=== PATIENT | male | born 1980 | race African-American/Black ===

== ENCOUNTER 2016-09-20 18:21 | Inpatient (IN) ==
[2016-09-20] MEDS: *HR* HYDROmorphone 2 MG/ML SYRINGE IVP PRN (21:25)
[2016-09-20] MEDS ORDERED: *HR* HYDROmorphone 2 MG/ML SYRINGE IVP ONE (23:16)
[2016-09-21] MEDS: *HR* HYDROmorphone 2 MG/ML SYRINGE IVP PRN ×3 (03:31→22:23)
[2016-09-21] MEDS ORDERED: *HR* HYDROmorphone 2 MG/ML SYRINGE IVP ONE ×2 (06:41→13:15)
--- NOTE | 2016-09-21 07:50 | Anesthesia Evaluation PreOp ---
Date of Encounter: 09/21/16 Time of Encounter: 15:54 - Past History Planned Operation: ORIF Right Ankle Cardiac History: Denies any Significant Hx Pulmonary History: Denies Any Significant HX FRUIT DISTRIBUTOR History: Denies Any Significant HX Other Medical History: Denies Any Significant HX Anesthesia History: Past Anesthesia (None) Alcohol Use: rarely Drug use: none Medications and Allergies No Known Home Drugs 09/21/16 [History] Allergies No Known Allergies Allergy (Verified 09/20/16 21:08) - Meds/Allergy Pre-op Review Medications Reviewed: Yes Allergies Reviewed: Yes Beta Blockers on Current Med List: No Anesthesia Results - Labs 09/21/16 12:17 09/21/16 12:17 Anesthesia Exam O2 Sat Height 1.7 m Weight 113.398 kg Weight 113.761 kg O2 Sat by Pulse Oximetry 95 O2 Sat by Pulse Oximetry 92 O2 Sat by Pulse Oximetry 97 O2 Sat by Pulse Oximetry 93 Vital Signs Temp Pulse Resp BP Pulse Ox 98.2 F 117 17 122/80 93 09/20/16 20:28 09/20/16 20:28 09/20/16 20:28 09/20/16 20:28 09/20/16 20:28 Vital Signs/O2 Sat, Most Current Temp Pulse Resp BP Pulse Ox 98.5 F 88 16 144/80 95 09/21/16 06:31 09/21/16 06:31 09/21/16 06:31 09/21/16 06:31 09/21/16 06:31 Height: 5'7'' Weight: 250# - HEENT Pupil (Motor): Pupils equal, EOMI Mallampati: III Teeth: Normal Oral Opening: Greater than 3 - FRUIT DISTRIBUTOR LOC: Oriented FRUIT DISTRIBUTOR Motor: Normal RUE, Normal LUE, Normal RLE, Normal LLE, Normal Face FRUIT DISTRIBUTOR Sensory: Normal: RUE, LUE, RLE, LLE, Face - Cardiac Rhythm: Regular Murmur: None JVD: No Carotid Bruit: No - Pulmonary Breath Sounds: bilateral Clear Respiratory Effort: Symmetrical Anesthesia Assess/Plan ASA Score: 1 Modified Deon Scale for Level of Consciousness: Cooperative, oriented, and tranquil Anesthetic Plan: General Autologous Blood: Yes Monitoring Plan: Standard Monitors Recovery Plan: PACU
--- NOTE | 2016-09-21 11:38 | Podiatry History & Physical ---
History of Present Illness Chief complaint: right ankle dislocation HPI: Mr. Arellano is a 35 year old male who recently sustained a fracture to his right ankle. The patient was transported here from another facility. Upon arrival it was noted that the patient was having significant pain. The patient relates that his ankle is severely painful. Patient relates that the emergency department at the facility that he has previously at tried to reduce it unsuccessfully. The patient relates that he would like to have it fixed as soon as possible. Patient denies any other pedal complaints. Patient denies any prior history of any illnesses or diseases. All Systems Reviewed: A 10-system review of systems was performed and is negative for pertinent findings except as documented above in the HPI. - Constitutional Constitutional: as per HPI - Cardiovascular Cardiovascular: leg edema - Respiratory Respiratory: as per HPI - Musculoskeletal Musculoskeletal: joint swelling, limited range of motion Past Med Surg Social Fam HX - Past Medical History Medical history: no medical history Psychiatric history: no psych history - Past Surgical History Surgical History: no surgical history - Social History Smoking Status: Never smoker Smokeless Tobacco Status: No Alcohol use: rarely Drug use: none - Family History Father Living Status: Still Living Mother Living Status: Still Living Hx Family Cardiac Disorders: Yes (CHF) Hx Family Endocrine Disorder: Yes (Pre DM) Medications and Allergies Allergies No Known Allergies Allergy (Verified 09/20/16 21:08) Physical Exam - Constitutional Vitals: Temp Pulse Resp BP Pulse Ox 98.4 F 98 16 142/84 96 09/21/16 10:13 09/21/16 10:13 09/21/16 10:13 09/21/16 10:13 09/21/16 10:13 Exam: Capillary fill time is intact to the digits of the right ankle. Pedal pulses are palpable. Sensation is intact. Significant edema noted with tenting of the skin along the medial aspect of the tibia secondary to the dislocation of the ankle. Radiographic exam demonstrates significant dislocation of the ankle. The right ankle has no noted skin necrosis at this point. No open lesions, abrasions, or ulcerations. HEENT-no drainage out of the ears, throat, nose, eyes. Cardiovascular-regular rate and rhythm. Lungs-clear to auscultation. Results - Labs Labs: Abnormal lab results POC Glucose 94 (58-89) H 09/21/16 05:35 All other labs normal. Assessment and Plan (1) Bimalleolar fracture of right ankle Current visit: Yes Status: Acute At this time due to the significant displacement the patient needs to go to the operating room as soon as possible. Nursing household chores was called and the case was scheduled. Patient was instructed that the procedure would be open reduction, internal fixation of the right ankle fracture versus closed reduction external fixation of the ankle fracture. The patient was understanding. Patient relates that he would like to pursue surgery as soon as possible. I agree with patient and feel as though he needs to be reduced as soon as possible. Due to the lack of success and the emergency department I feel as though a bedside reduction would be both and appropriate and unsuccessful. We will schedule this patient for surgical intervention as soon as possible. The patient was instructed that due to the injury he may have continued arthritis or other problems. The patient was instructed that his skin is at risk and may require an external fixator for a few weeks prior to definitive fixation with internal fixation. Patient was informed of the risks and complications of surgery. These may include but are not limited to the following; nerve damage, numbness, tingling, RSD/CRPS, loss of motor function, loss of toe, loss of limb, loss of life, ischemia, wound healing issues, infection, scarring, keloid formation, continued pain, arthritis, non-union, mal-union, prominent hardware, displaced hardware, reaction to hardware, the need to remove hardware, bruising, continued limp, the need for future surgery, over correction, under correction, chronic swelling, the need for physical therapy, stiffness of joints, ulceration, slow healing, wound dehiscence, reaction to implant, reaction to sutures. The patient was informed of the possible conservative treatments available which may include but are not limited to the following: Orthotics, bracing, non -weight bearing, physical therapy, padding, taping, steroid injections, NSAIDS, casting. The patient was given the option to seek a second opinion. It was explained that surgery is an art and not an exact science therefore results cannot be guaranteed. All the patients questions and concerns were addressed. Patient agrees to have the surgery despite the possible risks and complications. Absolutely no guarantees were given or implied. Qualifiers: Encounter type: initial encounter Fracture type: closed Qualified Code(s) : S82.841A - Displaced bimalleolar fracture of right lower leg, initial encounter for closed fracture
[2016-09-21 12:33] LABS: Basophils % 0.3 %; Eosinophils # 0.1 K/mcL (0.0-0.6); Eosinophils % 0.8 %; Hematocrit 45.9 % (37.5-50.1); Hemoglobin 14.3 g/dL (12.9-16.9); Immature Granulocytes % 0.2 % (0-4); Lymphocytes # 1.2 K/mcL (0.6-4.6); Lymphocytes % 13.4 %; Mean Corpuscular HGB Conc 31.2 g/dL (31.6-35.5); Mean Corpuscular Volume 80.2 fL (83.0-100.0); Mean Platelet Volume 9.8 fL (9.4-12.4); Monocytes # 0.9 K/mcL (0.0-1.3); Monocytes % 10.2 %; Neutrophils # 6.9 K/mcL (1.6-8.9); Platelet Count 347 K/mcL (140-400); Red Blood Count 5.72 M/mcL (4.19-5.50); Red Cell Distribution Width 13.6 % (11.5-14.5); Segmented Neutrophils % 75.1 %
[2016-09-21 12:36] LABS: BUN/Creatinine Ratio 15 (6-26); Blood Urea Nitrogen 16 mg/dL (8-26); Calcium 9.8 mg/dL (8.6-10.8); Carbon Dioxide 28 mEq/L (19-29); Chloride 103 mEq/L (98-109); Glucose 104 mg/dL (70-99); Osmolality,Calculated 291 (280-300); Sodium 140 mEq/L (136-145); eGFR For African Americans > 60 (> 60); eGFR For Non-African Americans > 60 (> 60)
[2016-09-21 12:37] LABS: Potassium 4.9 mEq/L (3.5-4.5)
[2016-09-21] MEDS ORDERED: 0.9 % Sodium Chloride 1,000 ML ONE (13:19)
[2016-09-21] MEDS: 0.9 % Sodium Chloride 1,000 ML IVC SCH ×2 (13:31→20:52)
[2016-09-21] MEDS ORDERED: *HR* Propofol 200 MG/20 ML VIAL IVP ONE (13:35)
[2016-09-21] MEDS ORDERED: *HR* Midazolam HCl 2 MG/2 ML VIAL ONE (13:35)
[2016-09-21] MEDS ORDERED: *HR* FentaNYL (PF) 100 MCG/2 ML VIAL ONE (13:35)
[2016-09-21] MEDS ORDERED: Ondansetron 4 MG/2 ML VIAL ONE (13:38)
[2016-09-21] MEDS ORDERED: Lidocaine -MPF 2% 2 ML VIAL ONE (13:38)
[2016-09-21] MEDS ORDERED: Dexamethasone 4 MG/ML VIAL ONE (13:38)
[2016-09-21] MEDS ORDERED: *HR* Succinylcholine 200 MG/10 ML VIAL IVP ONE (13:38)
[2016-09-21] MEDS ORDERED: *HR* Rocuronium Bromide 50 MG/5 ML VIAL ONE (13:38)
[2016-09-21] MEDS ORDERED: Bupivacaine/Clonidine Syringe 1 EACH SYRINGE ONE ×2 (15:38→18:07)
[2016-09-21] MEDS ORDERED: *HR* Labetalol 20 MG/4 ML SYRINGE IVP PRN (17:27)
[2016-09-21] MEDS ORDERED: *HR* Promethazine 25 MG/ML VIAL IVP PRN (17:27)
[2016-09-21] MEDS ORDERED: *HR* HYDROmorphone (PF) 1 MG/ML SYRINGE IVP PRN (17:27)
[2016-09-21] MEDS ORDERED: Albuterol 2.5 MG/3 ML NEBULIZER IH ONE (17:27)
[2016-09-21] MEDS ORDERED: Ondansetron 4 MG/2 ML VIAL IVP ONE (17:27)
--- NOTE | 2016-09-21 19:22 | Anesthesia Evaluation Post Op ---
Date of Encounter: 09/21/16 Time of Encounter: 19:21 - Vital Signs Vital Signs: Vital Signs/O2 Sat, Most Current Temp Pulse Resp BP Pulse Ox 100.1 F H 99 20 124/98 96 09/21/16 18:58 09/21/16 19:08 09/21/16 19:08 09/21/16 19:08 09/21/16 19:08 - Lungs Lungs: Clear Ascult./Percussion - Airway Airway: Non-obstructed - Cardiovascular Regular Rate - Mental Status Mental Status: Alert & Oriented, Answers Appropriately - Pain Pain Scale: 3 Pain Scale used: Numeric (1 - 10) - Nausea Vomiting Nausea Vomiting: Not Present - Hydration Hydration: Ice chips, Has not voided - Discharge PostOp Status: Transfer Patient to floor
--- NOTE | 2016-09-21 22:38 | Operative Note ---
Date of procedure: 09/21/16 Pre-op diagnosis: bimalleolar ankle fracture dislocation, right Post-op diagnosis: same Procedure: Open reduction, internal fixation of bimalleolar ankle fracture, open repair of syndesmosis right ankle. Implants: Antonio plate with associated screws Complications: None Anesthesia: GETA Surgeon: Marcos Stanley Estimated blood loss (cc): 20 Tourniquet Time (Minutes): 90 Condition: stable Disposition: PACU Procedure in Detail: The patient was administered IV antibiotics. The patient was transported to the operative room and placed on operating table in the supine position. Following anesthesia the extremity was scrubbed prepped and draped in the usual aseptic fashion. A timeout was performed. The lower extremity was raised to 60 degrees for hemostasis and exsanguinated utilizing an Esmarch bandage. The pneumatic tourniquet was inflated. The leg was lowered to the table. Attempted closed reduction was performed. It was noted that the distal fibula was almost perpendicular to the proximal fibula and significant dislocation and contracture was noted. Due to the significant dislocation the decision was made to open the site to reduce it more appropriately as closed reduction was not successful. An incision was made and deepened through subcutaneous tissue with care taken to identify and retract all vital neurovascular structures. The fracture of the distal fibula was identified and noted to be transverse in nature. The site was reduced utilizing lobster claw, due to transverse fracture a lag screw was not used. The site was stabilized temporarily utilizing 2 K wire fixation instead. A neutralization plate was applied. The fracture site was noted to have stable fixation at which point the temporary K wire fixation was removed. Due to the difficulty getting adequate reduction with the medial malleolus the decision was made to open the medial side. An incision was made along the medial malleolus and deepened through subcutaneous tissue with care taken to identify and retract all vital neurovascular structures. The medial malleolar fragment was identified and temporary stabilized with 2 K wires. After adequate stabilization with K wire fixation was performed the cannulated screws were inserted for permanent fixation. The medial malleolus fragment was noted to be fragmented and had multiple fracture lines through it. After sufficient stabilization of the medial malleolus was performed the attention was directed to the syndesmosis. The syndesmosis was then tested and noted to be insufficient. A syndesmotic screw was then placed to repair the subluxation/syndesmosis. The incision site was irrigated with copious amounts of normal saline and closed in a layered fashion. A dry sterile dressing was applied. The pneumatic tourniquet was deflated and a hyperemic response was noted to all digits. The patient was placed in a posterior splint. The patient tolerated the procedure and anesthesia well and was transported to the recovery room with vital signs stable and vascular status intact to both feet. The patient will be readmitted per anesthesia. The patient will keep the dressings clean, dry, intact until the follow-up appointment in 1-2 weeks. The patient's weightbearing status will be strict nonweightbearing. The patient will be readmitted for pain control and observation. The patient will be discharged tomorrow with Percocet and blood thinner consisting of either Xarelto, Lovenox, or aspirin. The patient will need to keep the posterior splint intact at all times. The patient will need to follow-up within 1 week of discharge. Patient will need to ice and elevate.
[2016-09-21] MEDS ORDERED: *HR* OxyCODONE/APAP 10/325 TABLET PO PRN (23:30)
[2016-09-21] MEDS: *HR* OxyCODONE/APAP 10/325 TABLET PO PRN (23:52)
[2016-09-22] MEDS: *HR* HYDROmorphone 2 MG/ML SYRINGE IVP PRN ×4 (01:26→15:54)
[2016-09-22] MEDS: *HR* OxyCODONE/APAP 10/325 TABLET PO PRN ×3 (04:31→13:57)
--- NOTE | 2016-09-22 11:58 | Discharge Summary ---
Date of Encounter: 09/22/16 Time of Encounter: 11:54 - Discharge Diagnosis (1) Bimalleolar fracture of right ankle Priority: Primary Status: Acute Qualifiers: Encounter type: initial encounter Fracture type: closed Qualified Code(s) : S82.841A - Displaced bimalleolar fracture of right lower leg, initial encounter for closed fracture - Discharge Medications Prescriptions: OxyCODONE/APAP 10/325 [Percocet 10/325 MG] 1 each PO Q4HR PRN #30 tab PRN Reason: MODERATE TO SEVERE PAIN Aspirin [Ecotrin] 81 mg PO BID #42 tablet. Home Medications: Aspirin [Ecotrin] 81 mg PO BID #42 tablet. 09/22/16 [Rx] OxyCODONE/APAP 10/325 [Percocet 10/325 MG] 1 each PO Q4HR PRN #30 tab 09/22/16 [ Rx] Allergies/Adverse Reactions: Allergies No Known Allergies Allergy (Verified 09/20/16 21:08) Procedures and tests throughout hospitalization: Fluoroscopy 09/21/16 00:00 IMPRESSION: Intraprocedural fluoroscopic spot images as above. See separate procedure report for more information. Satisfactory appearance of the right ankle following ORIF. D/ / Sherman Beebe MD / Sherman Beebe MD Interpreting Provider: Sherman Beebe MD Last Vital Signs Temp 98.8 F 09/22/16 14:30 Pulse 92 09/22/16 14:30 Resp 16 09/22/16 14:30 BP 147/72 09/22/16 14:30 Pulse Ox 97 09/22/16 14:30 Laboratory Last Values WBC 9.2 K/mcL (4.3-11.1) 09/21/16 12:17 RBC 5.72 M/mcL (4.19-5.50) H 09/21/16 12:17 Hgb 14.3 g/dL (12.9-16.9) 09/21/16 12:17 Hct 45.9 % (37.5-50.1) 09/21/16 12:17 MCV 80.2 fL (83.0-100.0) L 09/21/16 12:17 MCH 25.0 pg (28.0-33.3) L 09/21/16 12:17 MCHC 31.2 g/dL (31.6-35.5) L 09/21/16 12:17 RDW 13.6 % (11.5-14.5) 09/21/16 12:17 Plt Count 347 K/mcL (140-400) 09/21/16 12:17 MPV 9.8 fL (9.4-12.4) 09/21/16 12:17 Immature Gran % 0.2 % (0-4) 09/21/16 12:17 Seg Neutrophils % 75.1 % 09/21/16 12:17 Lymphocytes % 13.4 % 09/21/16 12:17 Monocytes % 10.2 % 09/21/16 12:17 Eosinophils % 0.8 % 09/21/16 12:17 Basophils % 0.3 % 09/21/16 12:17 Neutrophils # 6.9 K/mcL (1.6-8.9) 09/21/16 12:17 Lymphocytes # 1.2 K/mcL (0.6-4.6) 09/21/16 12:17 Monocytes # 0.9 K/mcL (0.0-1.3) 09/21/16 12:17 Eosinophils # 0.1 K/mcL (0.0-0.6) 09/21/16 12:17 Basophils # 0.0 K/mcL (0.0-0.2) 09/21/16 12:17 Sodium 140 mEq/L (136-145) 09/21/16 12:17 Potassium 4.9 mEq/L (3.5-4.5) H 09/21/16 12:17 Chloride 103 mEq/L (98-109) 09/21/16 12:17 Carbon Dioxide 28 mEq/L (19-29) 09/21/16 12:17 BUN 16 mg/dL (8-26) 09/21/16 12:17 Creatinine 1.07 mg/dL (0.72-1.25) 09/21/16 12:17 Est GFR ( Amer) > 60 (> 60) 09/21/16 12:17 Est GFR (Non-Af Amer) > 60 (> 60) 09/21/16 12:17 BUN/Creatinine Ratio 15 (6-26) 09/21/16 12:17 Glucose 104 mg/dL (70-99) H 09/21/16 12:17 POC Glucose 88 (58-89) 09/21/16 11:26 Calculated Osmolality 291 (280-300) 09/21/16 12:17 Calcium 9.8 mg/dL (8.6-10.8) 09/21/16 12:17 Labs on day of discharge: Labs from last 24 hours 09/21/16 09/21/16 09/21/16 12:17 12:17 11:26 WBC 9.2 RBC 5.72 H Hgb 14.3 Hct 45.9 MCV 80.2 L MCH 25.0 L MCHC 31.2 L RDW 13.6 Plt Count 347 MPV 9.8 Immature Gran % 0.2 Seg Neutrophils % 75.1 Lymphocytes % 13.4 Monocytes % 10.2 Eosinophils % 0.8 Basophils % 0.3 Neutrophils # 6.9 Lymphocytes # 1.2 Monocytes # 0.9 Eosinophils # 0.1 Basophils # 0.0 Sodium 140 Potassium 4.9 H Chloride 103 Carbon Dioxide 28 BUN 16 Creatinine 1.07 Est GFR ( Amer) > 60 Est GFR (Non-Af Amer) > 60 BUN/Creatinine Ratio 15 Glucose 104 H POC Glucose 88 Calculated Osmolality 291 Calcium 9.8 - Impressions ITS Impressions Fluoroscopy 09/21/16 00:00 IMPRESSION: Intraprocedural fluoroscopic spot images as above. See separate procedure report for more information. Satisfactory appearance of the right ankle following ORIF. D/ / Sherman Beebe MD / Sherman Beebe MD Interpreting Provider: Sherman Beebe MD Date of admission: 09/20/16 20:05 Primary care physician: PCP NONE Consults: 09/22/16 11:46 Consult to Physical Therapy [CONS] Stat Comment: Evaluate, develop and implement POC Reason for Consult: Will d/c today. Needs crutches and training. Thank you! Discharging clinician: Marquise Finney Anticipated date of discharge: 09/22/16 - Patient Status Disposition: Home, Self-Care Condition: Fair Functional capacity at discharge: uses cane/walker (non weight bearing with crutches) Overall status at discharge: patient is progressing back to baseline - Discharge Instructions Instructions: Oxycodone/Acetaminophen (By mouth), Aspirin (By mouth) Follow Up With: Marcos Stanley DPM [Partnered Physician] - 09/26/16 2:15 pm NONE,PCP [Primary Care Provider] - Additional Instructions: Remain strict non weight bearing with crutches. Keep posterior splint dry and intact. Keep right lower extremity elevated above heart when lying or sitting. Use cryo cuff to right lower extremity as directed. F/u with Dr. Stanley this Thursday09/26/16 or sooner if increased pain, fever, chills, nausea, vomiting, or flu like symptoms. Go to the ED if chest pain, shortness of breath or calf pain. - Diet and Activity Activity: other (non weight bearing with crutches) Diet: regular diet - Hospital Course Hospital course: Mr. Arellano is a 35 year old male that was transferred from another facility for a bimalleolar ankle fracture dislocation, right. The emergency department at the facility that the patient was transferred from tried to reduce the right ankle but was unsuccessful. Patient has no medical history. Patient was taken to surgery on 09/21/2016 for an open reduction, internal fixation of bimalleolar ankle fracture, open repair of syndesmosis right ankle by Dr. Stanley. The patient was placed in a posterior splint. The patient tolerated the procedure and the condition improved upon discharge. Patient will be discharged with Percocet and a baby aspirin twice daily. Patient will keep the posterior splint dry and intact and remain non weight bearing. Crutches ordered for patient with a physical therapy consult for crutch training. The patient will follow up in [address] week of [address] Dr[address] Stanley. - Time Spent with Patient Total time spent providing and/or coordinating discharge services: - VTE Documentation of Mechanical Device: Intermittent pneumatic compression device
[2016-09-22 14:36] VITALS: BP 147/72
== END 2016-09-22 16:20 | disposition home or self-care (01) | DRG 494 ==
LOC: 3ANU 20:05
PROVIDERS: ADMIT Podiatrist Foot & Ankle Surgery; ATTEND Podiatrist Foot & Ankle Surgery